=== PATIENT | female | born 1955 | race Caucasian/White ===

== ENCOUNTER 2025-01-13 11:13 | Emergency (ER) | payer MEDICARE, BC ==
[~2025-01-13] VITALS: Ht 177.8 cm; Wt 118.2 kg
[2025-01-13 11:17] VITALS: TEMP 98.5
--- NOTE | 2025-01-13 11:46 | RADIOLOGY REPORT ---
CT CT STROKE ALERT INDICATION: Stroke Alert EXAM DATE: 01/13/2025 11:20 AM COMPARISON: None RADIATION DOSE: CTDIvol: 60 mGy, DLP: 1168 mGy*cm PROCEDURE: CT scans of the head were obtained from the vertex to the skull base. Sagittal and coronal reconstructions were provided. All CT scans at this medical facility are performed using dose modulation techniques as appropriate to a performed exam including the following: Automated exposure control was utilized; adjustment of the MA and/or KV according to patient size; and use of iterative reconstruction technique. 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 There is sulcal and ventricular prominence. The brain otherwise shows normal morphology and doan-white matter differentiation, without intracranial hemorrhage, extra-axial fluid collection, mass effect or acute large vessel infarct. The ventricles are normal in size. The basal cisterns are patent. The skull and visible facial bones are intact. The paranasal sinuses, mastoid air cells and middle ear cavities are well-aerated. The soft tissues of the scalp are unremarkable. 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 No acute intracranial abnormality.
--- NOTE | 2025-01-13 11:57 | ELECTROCARDIOGRAPH REPORT ---
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 Song Smith Measurements Intervals [place] Rate: 63 P: 53 FL: 164 QRS: 37 QRSD: 92 T: -24 QT: 446 QTc: 457 Interpretive Statements Sinus rhythm Posterior infarct, old Nonspecific T abnormalities, inferior leads Electronically Signed On 01-25-2025 8:15:[address] Song Smith Please click the below link to view image of tracing.
[2025-01-13 12:16] LABS: MEAN PLATELET VOLUME 8.5 FL (7.4-10.4); RED CELL DISTRIBUTION WIDTH 15.5 % (11.5-14.5)
[2025-01-13 12:21] LABS: CREATININE 1.19 MG/DL (0.40-0.90); TOTAL CARBON DIOXIDE 32.4 MMOL/L (24-32); eCRCL 48 ML/MIN; eGFR 45 ML/MIN
[2025-01-13 12:24] LABS: APTT 34 SECONDS (22-32); INR 1.3 INR
--- NOTE | 2025-01-13 12:29 | RADIOLOGY REPORT ---
DI CHEST,SINGLE VIEW, HISTORY: Stroke Alert COMPARISON: CT CHEST WO CONTRAST on DOS: 07/31/24 CT CHEST WO CONTRAST on DOS: 07/31/24 TECHNICAL DATA: 1 view of the chest was obtained. FINDINGS: Lines and tubes: None Cardiomediastinal silhouette: normal Pulmonary vasculature: normal Lung expansion: normal Lung airspace: normal Lung interstitium: normal Pleura: normal Pneumothorax: no Bones: Unremarkable Other: no IMPRESSION: No acute intrathoracic abnormality.
--- NOTE | 2025-01-13 13:31 | Physician Documentation ---
History of Present Illness ~ Chief Complaint: Stroke Alert Stated Complaint: HEADACHE Time Seen by MD: 12:54 Source: patient (2), family HPI Patient comes in for evaluation of right-sided facial pain and numbness along with headache, questionable stroke. She has a history of non-Hodgkin's lymphoma in remission for the last 18 months or so, reports that on a PET scan a couple of weeks ago she had areas that lit up in the pelvic area as well in the right cervical area. She had a biopsy of the lymph nodes in [facility] through her oncologist, but has an MRI pending of the cervical region before being referred for possible biopsy of this area. Apparently the concern is for vascular abnormality impacting the approach for a biopsy. She has no history of headaches but reports a headache over the last three days in the right side of her head, face, and radiating down into her right trapezius. She reports that starting last night after dinner she began to have numbness in the right side of her face and a sensation of it feeling swollen, along with some pain in her right eye, but no visual changes. She has no speech difficulties, no aphasia/dysarthria, and no focal neurologic findings elsewhere, other than it chronic right leg numbness that has been p resent since a prior stroke. Numbness seems to be improved today. Medication Reconciliation Allergies: Coded Allergies: No Known Allergies (Unverified , 01/13/25) Scheduled Hydrochlorothiazide (Hydrochlorothiazide), 1 TAB PO DAILY, (Reported) Levothyroxine Sodium (Levoxyl), 1 TAB PO DAILY, (Reported) Metoprolol Succinate (Metoprolol Succinate), 1 TAB PO DAILY, (Reported) Rivaroxaban (Xarelto), 1 TAB PO DAILY, (Reported) Rivaroxaban (Xarelto), 1 TAB PO DAILY, (Reported) Past Medical History Past Medical History: CVA/TIA/Stroke, Atrial Fibrillation, Coronary Artery Disease, Hypertension, Asthma, *GI/HEPATOBILIARY* (Double bowel), GERD, Chronic Pain, Lymphoma (Non-Hodgkin's) Smoking Status: Never smoker Alcohol Use: None Drug Use: none Review of Systems All Other Systems at this time: Reviewed and Negative Physical Exam Vital Signs: Temperature: 98.5, Source: Temporal, Heart Rate: 63, Respiratory Rate: 16, BP: 126/68, Pulse Oximetry: 94, Weight: 118.180 Oxygen Flow Rate: 0 General Appearance General: Pt is awake, alert, oriented x4 in no acute distress and well appearing. Head: Normocephalic and atraumatic. Eyes: Conjunctiva normal. ENT: Mucous membranes moist. Neck: Completely supple. THere are areas of tenderness at the right base of the skull. No masses appreciated. Chest: Clear to auscultation bilaterally, without rales, rhonchi, or wheezes. There is no accessory muscle use or retractions. Cardiac: Regular rate and rhythm without murmurs, gallops or rubs. Palpation of the chest wall is normal. Abd: Soft, nondistended, nontender, with normoactive bowel sounds. No guarding or rebound. Extremities: Within normal limits without cyanosis, clubbing, or edema. Skin: [place], warm and dry with no significant rash appreciated. Neuro: Cranial nerves II-XII intact. Speech is clear without dysarthria or aphasia, currently no numbness to the face. Motor and sensory intact throughout, except for some baseline RLE sensory changes. Bilateral patellar reflexes symmetrical. Progress Results/Orders Results/Orders Completed Orders - MELECIO ALFRED DO Acetaminophen 325mg Tablet (Tylenol Tabl (01/13/25 19:50) Medications Received in ER Medications (Trade) Dose Ordered Sig/Steffi Route PRN Reason Start Time Stop Time Status Last Admin Dose Admin (morphine inj.) 4 mg ONCE ONCE IM 01/13/25 13:40 01/13/25 13:41 DC 01/13/25 13:57 4 MG (Tylenol tablet) 650 mg ONCE ONCE PO 01/13/25 13:40 01/13/25 13:41 DC 01/13/25 13:56 650 MG (0.9% sodium chloride (NS) 1000ml IV soln) 1,000 ml ONCE ONCE IVB 01/13/25 17:25 01/13/25 17:27 DC 01/13/25 17:45 1,000 ML (Compazine inj) 10 mg ONCE ONCE IV 01/13/25 17:40 01/13/25 17:42 DC 01/13/25 19:51 10 MG (Benadryl inj.) 25 mg ONCE ONCE IV 01/13/25 17:40 01/13/25 17:42 DC 10/12/25 19:56 25 MG (Tylenol tablet) 650 mg ONCE ONCE PO 01/13/25 19:50 01/13/25 19:51 DC 01/13/25 19:53 650 MG Vital Signs 01/13/25 01/13/25 01/13/25 01/13/25 11:17 12:11 12:13 12:30 Temp 98.5 Pulse 70 64 63 Resp 18 16 19 B/P (MAP) 157/73 129/64 (85) 127/65 (85) Pulse Ox 99 97 95 98 O2 Delivery Room Air* O2 Flow Rate 0 0 0 0 FiO2 21 01/13/25 01/13/25 01/13/25 01/13/25 12:46 12:56 13:57 14:00 Pulse 63 70 Resp 16 16 16 16 B/P (MAP) 126/68 (87) 120/83 (95) Pulse Ox 94 97 O2 Flow Rate 0 0 01/13/25 01/13/25 14:50 15:00 Pulse 60 Resp 16 11 B/P (MAP) 114/68 (83) Pulse Ox 97 O2 Flow Rate 0 Laboratory Tests Test 01/13/25 12:00 White Blood Count 5.8 Red Blood Count 4.68 Hemoglobin 13.6 Hematocrit 40.5 Mean Corpuscular Volume 86.6 Mean Corpuscular Hemoglobin 29.0 Mean Corpuscular Hemoglobin Concent 33.5 Red Cell Distribution Width 15.5 H Platelet Count 273 Mean Platelet Volume 8.5 Neutrophils (%) (Auto) 72.9 Lymphocytes (%) (Auto) 13.7 L Monocytes (%) (Auto) 8.2 Eosinophils (%) (Auto) 4.6 Basophils (%) (Auto) 0.6 Neutrophils # (Auto) 4.2 Lymphocytes # (Auto) 0.8 L Monocytes # (Auto) 0.5 Eosinophils # (Auto) 0.3 Basophils # (Auto) 0.0 CBC Comment Prothrombin Time 13.3 H INR International Normalized Ratio 1.3 Activated Partial Thromboplast Time 34 H Coagulation Comments Sodium Level 141 Potassium Level 4.1 Chloride Level 104 Carbon Dioxide Level 32.4 H Anion Gap 5 L Blood Urea Nitrogen 17 Creatinine 1.19 H Estimated GFR/1.73 m2 45 BUN/Creatinine Ratio 14.3 Glucose Level 94 Calcium Level 8.4 L Albumin 3.3 L Chemistry Comments Re-Evaluation Re-Evaluation #1: Re-Evaluation Time: 15:17 Progress Awaiting neurology consult. Pt feeling better after medication, is resting comfortably. Re-Evaluation #2: Re-Evaluation Time: 15:46 Progress Pt was seen by Teleneurology without discussion with me; I was unaware they had seen patient and placed consult in chart. Re-Evaluation #3: Re-Evaluation Time: 16:46 Progress MRI available but will not perform study because pt has bladder stim unit and they have no policy therefore do not do exams on these patients. We will plan CTA head and neck. It also turns out that her outpatient MRI orders, sent by her oncologist, were sent to this facility. She obviously will not be able to have that study done here. We will check with [facility] to see if it is possible to do it there tonight, otherwise it may require some calls on their part to find a facility who will be willing to do it. MRI is down and [facility], with no ETA for its return to service. Unable to reach anyone to verify if they have a policy that would allow performing the MRI with the stimulator in place. Will proceed with CTA here and patient can work with her oncologist to ensure MRI orders go to the right facility, as outpatient. Re-Evaluation #4: Re-Evaluation Time: 18:16 Progress Pt's case discussed with Dr. Alfred, oncoming EP. He will review imaging, recheck patient, and arrange for appropriate disposition. Pt aware of change in caregiver. Consults/PCP Consults/PCP : Time Call Requested: 13:37 Consult Reason/Comments: [facility] Departure Impression: Primary Impression: Facial pain Additional Impression: Facial numbness Condition: Improved Discharge Instructions: Stroke Prevention, [id number] Additional Instructions: Please follow-up with the primary care and your oncologist. You need an MRI to be done at a facility that has a protocol for MRI with a bladder stimulator. Explore [facility] advanced imaging MRI versus MRI at [facility]. Referrals: NO PRIMARY CARE PROVIDER (PCP) Additional Comment Additional Comment Date: Jan 13, 2025 Time: 19:47 Additional note by Melecio Alfred DO: I took over the care of this patient from previous physician. I reviewed any previous notes available, obtain my own history, review of systems and physical examination was performed by myself. This is a 69-year-old female who presented with a right-sided facial pain and numbness. Neurology was consulted. They recommended MRI, however this facility does not have a protocol to do MRI with her bladder stimulator even though the bladder stimulator has a MRI compatible mode. The solar installation technician refused to do the MRI. Patient was signed out pending formal read of CT head and CT angiography. CT angiography shows no LVO, no dissection. Per plan worked up with a tele neurology and previous physician, Dr. Moon, the patient will be discharged home to follow-up with her oncology to do MRI of the facility that has a protocol compatible with a her bladder stimulator. Patient is hemodynamically stable for discharge home with follow with their primary care provider. [ ] Specific and cautious return precautions provided and discussed with full understanding. Any incidental findings were also discussed and follow up recommendations given. [] All questions answered. Patient/family were able to verbalize back return precautions. Patient/family agree to plan. Copies of imaging and laboratory studies were provided. Signature Scribe Signature: No scribe Attestation: Date: Jan 13, 2025 Time: 20:14 This note accurately reflects clinical decisions, work performed by myself, DO GEOFF Lucas MARTA E MD Jan 13, 2025 13:31 MELECIO ALFRED DO Jan 13, 2025 19:50
[2025-01-13] MEDS: morphine 4 MG/ML inj SYRINge IM ONE (13:57)
--- NOTE | 2025-01-13 14:41 | [facility] CONSULT REPORT ---
[facility] Procedure Note [facility] Procedure Note Consult [facility] Note # Demographics Consult Type: Acute Stroke Level 2 (4.5-24 hrs) Patient Location: Emergency Room First Name: TERRIE Last Name: BALAJI Date of : 1955 Age: 69 Gender: Female Facility: [facility] Time of Initial Page (): 01/13/2025 13:44 First Contact with Site ( Time): 01/13/2025 13:45 # HPI Chief Complaint: - headache History: 69 yo F with hx of [place] lymphoma p/w new onset headache since Tuesday. It's throbbing with nausea and photophobia, significant pressure behind her R eye. She never had similar headache like this before. Last night, she developed R facial numbness. She recently developed R neck lump and is pending MRI and biopsy. # Scores Time of exam and NIHSS (): 01/13/2025 13:52 Level of Consciousness 1a: [0] = Alert; keenly responsive LOC Questions 1b: [0] = Answers both questions correctly LOC Commands 1c: [0] = Performs both tasks correctly Best Gaze 2: [0] = Normal Visual 3: [0] = No visual loss Facial Palsy 4: [0] = Normal symmetrical movements Motor Arm Left 5a: [0] = No drift Motor Arm Right 5b: [0] = No drift Motor Leg Left 6a: [0] = No drift Motor Leg Right 6b: [0] = No drift Limb Ataxia 7: [0] = Absent Sensory 8: [1] = [id number] sensory loss Best Language 9: [0] = No aphasia Dysarthria 10: [0] = Normal Extinction and Inattention 11: [0] = No abnormality NIHSS Total: 1 # ROS Additional: - complete review of systems otherwise negative # PMH-FH-[id number] Past Medical History: - cancer # Data Head CT: L frontal chronic infarct # Assessment Impression: - New onset headache with migrainous feature, ruling out intracranial metasta sis, venous sinus thrombosis # Plan Thrombolytic/Intervention: NOT IV Thrombolysis or IA Intervention candidate Thrombolytic Exclusion: > 4.5 hours Intraarterial Exclusion: - clinical exam not consistent with presence of large vessel occlusion (LVO), c an reconsider if LVO found on vascular imaging Imaging: (urgency: routine): - MRI Brain and neck with AND without contrast - MRV head with and without Medication: - migraine cocktail: Toradol 30 mg IV + Benadryl 25 mg IV + antiemetic IV Other: - If patient has any neurological deterioration please call me back immediately # Logistics Attestation of consult completion: The patient is located at: [facility]. Facility staff participated in the visit. I performed this telemedicine visit from my offsite office utilizing interactive 2 way audio and visual telecommunication technology at the request of the onsite emergency room provider. Total time spent in telemedicine encounter: I spent 21 minutes reviewing clinical data and/or imaging, obtaining history, examining the patient, communicating with the onsite care team, and in preparation of this report. # Demographics First Name: TERRIE Last Name: BALAJI Facility: [facility] Electronically signed at 01/13/2025 14:39 ([place] Time) by Mercedes Hendricks MD Neuro Consult Order placed for: Yes MERCEDES HENDRICKS MD Jan 13, 2025 14:41
[2025-01-13] MEDS ORDERED: METO-395 PO (15:59)
[2025-01-13] MEDS ORDERED: HYDR12.55 PO (15:59)
[2025-01-13] MEDS ORDERED: LEVO25TA49 PO (15:59)
[2025-01-13] MEDS ORDERED: RIVA10TA PO (15:59)
[2025-01-13] MEDS: normal saline 1000ML IV soln IVB ONE (17:45)
--- NOTE | 2025-01-13 19:05 | RADIOLOGY REPORT ---
INDICATION: right sided headache/numbess, hx recent findings on PET COMPARISON: None TECHNIQUE: CTA head without and with intravenous contrast. CTA neck with intravenous contrast. 3D image postprocessing was performed on a dedicated workstation and images were used for interpretation and reporting. Radiation Dose Information: CT Dose: CTDI volume is 16.74 mGy. Dose-length product is 645.66 mGy*cm FINDINGS: CTA head: There is normal enhancement of the visualized distal internal carotid, anterior and middle cerebral arteries. There is a normal anterior communicating artery complex. There are bilateral posterior communicating arteries. The vertebral, basilar, cerebellar and posterior cerebral arteries are within normal limits. The early parenchymal enhancement is grossly unremarkable. The visualized intracranial venous structures are grossly unremarkable. CTA neck: The visualized thoracic aortic arch and proximal great vessels are unremarkable. The left common, internal and external carotid arteries are within normal limits. The right common, internal and external carotid arteries are within normal limits. The cervical segments of the right and left vertebral arteries are within normal limits. The limited visualized lung apices are clear. The surrounding soft tissues and osseous structures are otherwise unremarkable. IMPRESSION: No evidence of hemodynamically significant intracranial stenosis, proximal occlusion or aneurysm. No evidence of hemodynamically significant cervical stenosis or dissection. All CT scans at this medical facility are performed using dose modulation techniques as appropriate to a performed exam including the following: Automated exposure control was utilized; adjustment of the MA and/or KV according to patient size; and use of iterative reconstruction technique.
[2025-01-13 20:37] VITALS: BP 125/89; PULSE 68; RESP 18; O2SAT 98
== END 2025-01-13 20:40 | disposition home or self-care (01) ==
LOC: ER 11:14
DX: R51.9 Headache, unspecified (principal); R20.0 Anesthesia of skin; I10 Essential (primary) hypertension; G89.29 Other chronic pain; I25.10 Atherosclerotic heart disease of native coronary artery without angina pectoris; I48.91 Unspecified atrial fibrillation; K21.9 Gastro-esophageal reflux disease without esophagitis; J45.909 Unspecified asthma, uncomplicated; Z86.73 Personal history of transient ischemic attack (TIA), and cerebral infarction without residual deficits; Z79.899 Other long term (current) drug therapy
CPT/HCPCS: 36415; 70496; 70498; 71045; 71250; 80048; 85025; 85610; 85730; 93005; 96361; 96372; 96374; 96375; 99285; J0780; J1200; J2270; J7030; Q9967